=== PATIENT | female | born 1960 | race Caucasian/White ===

== ENCOUNTER 2019-11-21 08:05 | Observation (INO) ==
--- NOTE | 2019-11-21 09:08 | History & Physical Bridge Note ---
Date of Service November 21, 2019 History & Physical Bridge Note I have examined the patient, reviewed the History & Physical and in the interval since the performance of the History & Physical I have noted the following changes of clinical significance: no changes noted I have explained the risk, benefit and intent of the cath and she is willing to proceed.
[2019-11-21] MEDS ORDERED: SODIUM CHLORIDE 0.9% 1000ML 1,000 ML IV SCH ×2 (09:15→12:30)
[2019-11-21] MEDS ORDERED: MIDAZOLAM HCL 1 MG/ML 2ML VIAL ONE ×2 (09:16→11:08)
[2019-11-21] MEDS ORDERED: HEPARIN (PORCINE) 1000 UNIT/ML 10 ML (CATH LAB USE ONLY) ONE ×2 (09:16→10:58)
[2019-11-21] MEDS ORDERED: NiCARDipine HCL INJ 2.5 MG/ML 10 ML AMP ONE (09:16)
[2019-11-21] MEDS ORDERED: NITROGLYCERIN/D5W 100MCG/ML 20ML SYR ONE (09:17)
[2019-11-21] MEDS ORDERED: fentaNYL citrate 100 MCG/2 ML VIAL ONE (09:42)
--- NOTE | 2019-11-21 10:26 | Cardiac Catheterization ---
Date of Service November 21, 2019 Cardiac Cath Report Cardiac Cath Report Procedure: 1. Coronary angiography 2. Left heart catheterization 3. Left ventriculogram History: This is a 59-year-old female who was having exertional dyspnea underwent an exercise stress echocardiogram. The patient was only able to complete 3 minutes of a Rohan protocol due to fatigue elevated blood pressure., dyspnea and She was referred for cardiac catheterization today. Procedure summary: After informed consent was obtained the patient was taken to cardiac catheterization lab where she was prepped and draped in the usual manner for right transradial approach. Preformed 5 Malian diagnostic catheters were utilized for the coronary angiograms. 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 ACC data: Start time 9:27 AM end time 10:04 AM Opening aortic pressure 155/90 Closing aortic pressure 163/80 LV pressure 163/34 Sedation 1 mg intravenous Versed IV fluid 50 cc normal saline Contrast 110 cc Fluoroscopy time 4.5 minutes Radiation 408 mGy DAP 41.3 centigrade per meter squared Right dominant system AUC score 7 Coronary angiography: Selective injections of the left main trunk reveal it to be widely patent. The left circumflex artery consist of a large first and second marginal branch that supplies the lateral myocardium. The left circumflex artery is widely patent. The proximal and midportion of the LAD are widely patent. The LAD then trifurcates and at this point there is a 95% concentric stenosis of the LAD. The remainder the LAD as well as the diagonal branches are widely patent. Injections into the right coronary artery revealed to be dominant. The right coronary artery is widely patent. Left ventriculogram: The left ventricle is of normal size with normal systolic function. The mitral valve is competent. The aortic root and ascending aorta have normal morphology and diameter. Summary: The patient has single-vessel coronary artery disease with a high-grade stenosis of the LAD at a trifurcation point. Recommendations: Recommendations are for coronary intervention on the LAD.
[2019-11-21] MEDS ORDERED: CLOPIDOGREL BISULFATE 300 MG TAB ONE (11:36)
[2019-11-21] MEDS ORDERED: ONDANSETRON INJ 2 MG/ML 2 ML VIAL IV PRN (12:29)
[2019-11-21] MEDS ORDERED: ACETAMINOPHEN 325 MG TAB PO PRN (12:29)
[2019-11-21] MEDS ORDERED: NITROGLYCERIN SL 0.4 MG/TAB TAB SL PRN (12:29)
[2019-11-21] MEDS ORDERED: ALBUTEROL HFA 8 GM INHALER INH PRN (12:35)
[2019-11-21] MEDS ORDERED: LORazepam 0.5 MG TAB PO PRN (12:35)
--- NOTE | 2019-11-21 12:39 | Post Anesthesia Assessment ---
Date of Service November 21, 2019 Post Sedation Assessment Vital Signs Temp Pulse Resp BP Pulse Ox 11/21/19 12:30 68 18 144/73 H 96 11/21/19 12:15 66 18 140/70 96 11/21/19 12:00 70 18 137/80 98 11/21/19 11:48 69 18 145/81 H 98 11/21/19 08:25 97.9 F 73 18 148/86 H 96 Recovery Score Activity: Moves 4 extremities Respiration: Deep Breath/Cough Circulation: +/-20% PreAnes Value Consciousness: Fully Awake Oxygen Saturation: O2 needed for >90% Discharge Sedation Level of Care: Fast Track Phase II Post Sedation Plan On clinical assessment, the patient appears to have tolerated the sedation without complications. Patient is recovering as anticipated. Patient will continue to be monitored by nursing and may be discharged when sedation discharge criteria are met per below protocol. Upon Completions of procedure up to 15 minutes continue every 5 minute vital signs and the P.A.R. score; then discharge to a Phase I or Fast Track to Phase II per the following guidelines: * Discharge Patient to appropriate Phase II area if PAR is 8 or greater or return to pre- procedure baseline. The post - procedure orders will be as directed. * If PAR score is less than 8 or not return to pre-procedure baseline then patient will follow Phase I monitoring till PAR is reached for Phase II. The Phase I may be done in procedure room or may call to secure a Phase I area. * If naloxone or flumazenil are used for reversal, hold in Phase I for continued monitoring from when last reversal dose was given for a minimum of 60 minutes or longer pending the nurse and/or physician discretion of patient condition before discharge to Phase II. Please call the Sedation Physician to re-evaluate and complete post-note for discharge to Phase II area. Do NOT discharge from procedure sedation or Phase 1 until post- sedation evaluation note is complete by procedure /sedation MD Sedation Discharge Instructions to be given to the patient at discharge to home.
--- NOTE | 2019-11-21 12:56 | Cardiac Catheterization ---
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 Cardiac Status Clinical evaluation leading to the procedure CAD Presenation: Positive Stress Test Anginal Classification: CCS III Heart Failure: No Cardiogenic Shock within 24 Hours: No Cardiac Arrest within 24 Hours: No Imaging Studies Past 6 Months: Yes Stress Studies Past 6 Months: No Diagnostic Physicians Name: Froilan Webber MD Status: Elective Closure Device Percutaneous Entry Location: Radial Closure Device: Radial Band Recommendations: None PCI Indication: + Stress Test Lesion Segment Name: mid LAD Culprit Artery: Yes Stenosis Prior to Rx (%): 95 Chronic Total Occlusion: No IVUS: No FFR: No Previously Treated Lesion: No Lesion Complexity: High/C Lesion Length (mm): 15 Thrombus Present: No Bifurcation Lesion: Yes Guidewire Across Lesion: Stenosis Post-Procedure (%): 10 Post-Procedure ANGEL Flow: 3 Devices(s) Deployed: Yes Yes Intraprocedure Events Significant Disection: No Perforation: No Cardiac Cath Procedure Full Procedure Date November 21, 2019 Pre-Procedure Diagnosis Pre-Procedure Diagnosis: Angina and Positive Stress Test AUC Score AUC Score: 7 Post-Procedure Diagnosis Post-Procedure Diagnosis: Severe CAD and Successful PCI Procedure(s) Performed Procedure(s) Performed: Coronary Angiography and Drug Eluting Stent Fire Ranger Froilan Webber MD Windows Phone Developer(s) Edward Estimated Blood Loss Estimated Blood Loss: 15 Medication(s) Medication(s): Clopidogrel, Fentanyl, Heparin, Lidocaine 1%, Nicardipine, Nitroglycerin and Versed Summary of Findings Indication: Abnormal stress test Access: TR band Catheters: EBU 3.5 guide Findings: For full details of patient's coronary angiography please see cath report dictated by Dr. Baker. Briefly, patient found to have severe single vessel disease with a 95% mid LAD stenosis at bifurcation with medium caliber diagonal. Decision to proceed with PCI. -- PCI -- Antithrombotic therapy: Heparin, clopidogrel Procedure: Left main cannulated with EBU 3.5 guide Pro-water wire passed across lesion into distal LAD Director Regulatory Affairs 50 wire placed into diagonal Mid LAD lesion predilated with 2.5 compliant balloon Dilated lesion stented with 2.75 x 18 mm [place] drug-eluting stent Diagonal rewired through stent struts with pilot plant supervisor 50 wire Stent post-dilated with 3.0 noncompliant balloon Ostium of diagonal/stent struts dilated with 2.0 balloon Mild residual stenosis in mid LAD re-postdilated with 3.5 NC balloon to high atmospheres Moderate residual/hazy stenosis in ostium of diagonal dilated with 2.5 balloon IC vasodilators administered for spasm Post procedure ANGEL 3 flow, stent well expanded with mild residual stenosis, no significant stenosis in diagonal and no other apparent cardiac complications. Arterial Closure: TR band Summary: 1. Successful PCI of calcified mid LAD with single drug-eluting stent (2.75 x 18 mm [place]; postdilated with 3.5 NC[<10% residual stenosis]). 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 Any exceptions are noted below. [facility] Card Cath Procedure Codes Moderate Sedation Procedure 1: Sedation/Anesthesia: 71408 Mod Sedation by the same physician;Init15 Min Child Age 5 & Up Stenting Procedure 1: Cardiovascular Stent Procedures: 01724 Perc transcatheter placement of intracoronary stent(s), with ang PG Care Time/CCT Total # of Minutes Spent Total Time Spent with Patient: Total time spent is greater than 50% in airport operations coordinator rdination of care (as documented) at patient's floor/unit and/or counseling patient:
--- NOTE | 2019-11-21 16:21 | Electrocardiogram Report ---
Test Reason : Blood Pressure : / mmHG Vent. Rate : 080 BPM Atrial Rate : 080 BPM P-R Int : 142 ms QRS Dur : 074 ms QT Int : 380 ms P-R-T Axes : 078 081 050 degrees QTc Int : 438 ms Normal sinus rhythm Right atrial enlargement Borderline ECG No previous ECGs available Confirmed by Edy Moralez ([id number]) on 11/21/2019 4:20:43 PM Referred By: Mike Baker Confirmed By:Edy Moralez
[2019-11-22] MEDS ORDERED: LEVOTHYROXINE SODIUM 75 MCG TABLET PO SCH (06:30)
[2019-11-22 07:54] LABS: Basophils # (auto) 0.07 K/uL (0-0.2); Basophils % (auto) 0.8 %; Eosinophils # (auto) 0.13 K/uL (0-0.5); Eosinophils % (auto) 1.5 %; Hematocrit (blood only) 44.1 % (37-47); Hemoglobin 15.2 g/dL (12.0-16.0); Immature Granulocytes # (auto) 0.02 K/uL (0.00-0.02); Immature Granulocytes % (auto) 0.2 %; Lymphocytes # (auto) 2.54 K/uL (1.2-3.4); Lymphocytes % (auto) 28.9 %; Mean Corpuscular Hemoglobin 31.7 pg (25-34); Mean Corpuscular Hgb Conc 34.5 g/dL (32-36); Mean Corpuscular Volume 91.9 fL (80-100); Mean Platelet Volume 10.4 fL (7.4-10.4); Monocytes # (auto) 0.65 K/uL (0.11-0.59); Monocytes % (auto) 7.4 %; Neutrophils # (auto) 5.39 K/uL (1.4-6.5); Neutrophils % (auto) 61.2 %; Platelet Count 328 K/uL (130-400); RDW Coefficient of Variation 13.5 % (11.5-14.5); RDW Standard Deviation 45.6 fL (36.4-46.3)
--- NOTE | 2019-11-22 08:57 | Discharge Summary ---
Date of Service November 22, 2019 Admission HPI Per Admitting Provider The patient was admitted after coronary stent placement LAD for observation. Principal Diagnosis 1. Coronary artery disease 2. Status post drug-eluting stent LAD Discharge Exam General: no acute distress and stated age Head: normocephalic, no masses, lesions, tenderness or abnormalities Eyes: conjunctiva are pink and non-injected, sclera clear Neck: supple, no adenopathy, no bruits, normal jugular venous pulse, no hepatojugular reflux Chest: normal shape and normal respiratory effort Lungs: clear to auscultation and percussion Cardiac Exam: - regular rate & rhythm, no murmurs gallops or rubs - normal S1, normal S2 Pulses: 2(+) throughout Abdomen: abdomen soft, non-tender, no abnormal masses and no hepatosplenomegaly Musculoskeletal: no gait disturbance, no joint inflammation, no deforming arthritis Extremities: no edema and no cyanosis Neuro: grossly normal exam Discharge Data Allergies Allergy/AdvReac Type Severity Reaction Status Date / Time nickel AdvReac Rash Verified 11/21/19 08:43 Consultations 11/21/19 12:34 Consult Cardiac Rehabilitation Routine Procedures Performed Operation Date: 11/21/19 09:30 Actual Procedures p Cath, Left with Cors and Vent - DO kaycee Pierce Cineradiography w/Routine Exam - DO kaycee Pierce Drug Eluting Stent SGl Vessel - Felix Webber MD s POBA SGL Vessel - Felix Webber MD Ordered Studies 11/21/19 06:47 CL Cath Imgs for PACS use only Stat Hospital Course (1) CAD (coronary artery disease): (2) Abnormal stress echocardiogram: (3) Stented coronary artery: The patient was admitted for cardiac catheterization which revealed high- grade stenosis of the mid LAD. She received drug-eluting stents within the LAD and diagonal branch. She had an uneventful night and now is ready for discharge. Total Time Total Time Spent Total Time Spent (In Minutes): Approximately 30 minutes. Total Time Includes: Examination of the Patient, Discharge Planning, Medication Reconciliation and Communication With Other Providers Discharge Plan Discharge Items Patient Disposition: Home - Self-Care Reason For Visit: Abnormal Stress Echo,CAD Discharge Diagnosis: Status post drug-eluting stent LAD and diagonal Activity: Per Instructions section Non-emergency contact: Feed And Farm Management Adviser Call non-emergency contact if: you have any medication questions, your symptoms worsen, your pain is not controlled, your pain is worsening, your pain is unusual for you, your pain is concerning for you, you have a fever, your temperature is above 101, your wound has increased redness, your wound has increased drainage and your wound pain has increased Follow-up/Referrals: Gloria Contreras PA-C [Primary Care Provider] - Diet: Heart Healthy Addtl Attending Provider Instructions: ACTIVITY RECOMMENDATIONS: Excess manipulation of the wrist should be avoided for the next 24-48 hours. * No lifting over 2 pounds (approximately a 1/2 gallon of milk) with the utilized arm for 24 hours. * No strenuous activity such as bowling or tennis for 3 days. * Keep the site of the procedure covered with a bandage for 24 hours. *You may shower the day after the procedure. Do not take a tub bath or submerge the puncture site in water for the next 3 days. *Do not operate any motorized equipment for 3 days. SPECIAL CARE INSTRUCTIONS: The site may be slightly bruised and sore following your procedure. Should any of the following occur, contact the Dr. who performed your procedure. 1. Redness/inflammation, swelling, chills, or fever, or colored drainage at procedure site within 3-7 days after your procedure. 2. Coldness, discoloration, ongoing numbness, severe pain, or swelling. Expect mild tingling of hand and tenderness at the puncture site for up to three days. If this persists beyond three days, or other symptoms develop, notify the Dr. who performed your procedure. BLEEDING: If the procedure site on your wrist begins to bleed, do not panic 1. Place 1 or 2 fingers firmly just slightly above the insertion site to stop the bleeding. You may be able to feel your pulse as you hold pressure. 2. Lift your finger after 5 minutes to see if the bleeding has stopped. 3. Once the bleeding has stopped, gently wipe the wrist area clean with a bandage. * If the bleeding from your wrist does not stop after 10 minutes, or if there is a large amount of bleeding or spurting, call 911 (do not drive yourself to the hospital). SKIN IRRITATION: * You may experience some redness and/or swelling in the area where radiation was administered. If any skin irritation occurs, please contact your family physician. FOLLOW UP VISIT: Keep any scheduled doctor appointments. Pending Studies at Discharge: No Stand-Alone Forms: My [facility] [employer], Smoking Cessation Medications and DC Order Prescriptions: New atorvastatin 40 mg Tablet 40 mg PO QAM Qty: 34 RF: 5 clopidogrel 75 mg Tablet 75 mg PO QAM Qty: 34 RF: 11 aspirin 81 mg Tablet,Delayed Release (Dr/Ec) 81 mg PO QAM Qty: 100 RF: 0 Continued levothyroxine 75 mcg Tablet 75 mcg PO DAILY RF: 0 diphenhydramine HCl [Benadryl] 25 mg Capsule 25 mg PO HS RF: 0 aspirin 81 mg Tablet,Chewable 81 mg PO DAILY RF: 0 albuterol sulfate [Ventolin HFA] 90 mcg/actuation Hfa Aerosol Inhaler 2 puff INHALATION Q6 RF: 0 Discontinued simvastatin [Zocor] 40 mg Tablet 40 mg PO PM RF: 0 lorazepam 0.5 mg Tablet 0.5 mg PO DAILY PRN (Reason: Anxiety) RF: 0 nitroglycerin 0.4 mg Tablet, Sublingual 0.4 mg sublingual DAILY PRN (Reason: Chest Pain) RF: 0 Discharge Orders: Discharge Order (Routine); Ordered 11/22/19 Ordered By: Mike Baker Admission Data Admit Date/Time: 11/21/19 12:36 Attending Provider: Mike Baker Admit Provider: Mike Baker Primary Care Provider: Gloria Contreras
[2019-11-22] MEDS ORDERED: ATORVASTATIN 40 MG TAB PO SCH (09:00)
[2019-11-22] MEDS ORDERED: CLOPIDOGREL BISULFATE 75 MG TAB PO SCH (09:00)
[2019-11-22] MEDS ORDERED: ASPIRIN 81 MG ECTAB PO SCH (09:00)
== END 2019-11-22 11:00 | disposition home or self-care (01) ==
LOC: CC 08:05 → 2E 08:05